=== PATIENT | male | born 1975 | race Caucasian/White ===

== ENCOUNTER 2023-10-25 13:57 | Inpatient (IN) | payer BC, MEDICAID ==
[2023-10-25] VITALS (25 sets, daily range): BP systolic 119–152; BP diastolic 69–104; TEMP 96.3–97.6; O2SAT 92–100
[~2023-10-25] VITALS: Ht 185.4 cm; Wt 96.5 kg
[2023-10-25] MEDS ORDERED: SODIUM CHLORIDE 0.9% INJ 10 ML SYR IV ONE ×2 (14:00)
[2023-10-25] MEDS ORDERED: LABETALOL 100MG/20ML VIAL IV STA ×2 (14:35→16:16)
[2023-10-25] MEDS ORDERED: ISOVUE-370 76% 100ML VIAL As Ordered ONE (14:37)
[2023-10-25 14:49] LABS: BASO % 0.4 % (0.0-1.0); EOS % 0.4 % (0.0-3.0); HEMATOCRIT 39.7 % (42.0-52.0); HEMOGLOBIN 13.1 g/dl (13.5-17.5); LYMPH # 1.8 10^3/uL (1.5-5.0); LYMPH % 17.8 % (24.0-44.0); MEAN CORPUSCULAR VOLUME 93.9 fl (80.0-96.0); MONO % 9.6 % (2.0-8.0); NEUTROPHILS # 7.1 10^3/uL (1.5-8.5); NEUTROPHILS % 71.5 % (36.0-66.0); PLATELET COUNT, AUTOMATED 294 10^3/uL (150-450); RED BLOOD COUNT 4.23 10^6/uL (4.30-6.10)
[2023-10-25 15:01] LABS: INR 1.28; PROTHROMBIN TIME 15.6 SECONDS (12.5-14.5)
[2023-10-25 15:02] LABS: PARTIAL THROMBOPLASTIN TIME 25.5 SECONDS (24.8-34.2)
[2023-10-25 15:12] LABS: CALCIUM LEVEL 8.4 MG/DL (8.5-10.1); CK-MB VALUE MASS 2.3 NG/ML (<3.6); CREATININE FOR GFR 1.38 MG/DL (0.70-1.30); GLOMERULAR FILTRATION RATE 58.1 (>56); POTASSIUM SERUM 4.4 MMOL/L (3.5-5.1)
[2023-10-25 15:15] LABS: MB/CK RELATIVE INDEX 2.37 (< OR =4)
[2023-10-25] MEDS ORDERED: TENECTEPLASE 50 MG KIT (TNKase) IVP ONE (15:30)
[2023-10-25 16:20] LABS: RSV AMPLIFICATION NEGATIVE (NEGATIVE)
[2023-10-25] MEDS ORDERED: MED REC IN PROGRESS XX SCH (16:25)
[2023-10-25] MEDS ORDERED: LABETALOL HCL 200 MG in NS 160 ML IV SCH ×2 (16:45→21:00)
[2023-10-25] MEDS ORDERED: ALBUTEROL 90 MCG/ACT 8GM HFA INHALER INH PRN (17:00)
[2023-10-25] MEDS: LABETALOL HCL 200 MG in NS 160 ML IV SCH ×2 (17:26→19:47)
[2023-10-25 18:00] LABS: C REACTIVE PROTEIN QUANTITATIV 0.6 MG/DL (<1.0)
[2023-10-25 18:01] LABS: RHEUMATOID FACTOR QUANT 8.6 IU/ML (<14)
[2023-10-25 18:14] LABS: ERYTHROCYTE SEDIMENTATION RATE 18 mm/hr (0-20)
[2023-10-25] MEDS ORDERED: ARMO200T3 PO (19:08)
[2023-10-25] MEDS ORDERED: FAMO1TAB11 PO (19:08)
[2023-10-25] MEDS ORDERED: ALBU8.5H PO (19:08)
[2023-10-25] MEDS ORDERED: ATOR40TA75 PO (19:08)
[2023-10-25] MEDS ORDERED: BENZ-18 PO (19:08)
[2023-10-25] MEDS ORDERED: TADA5TAB PO (19:08)
[2023-10-25] MEDS ORDERED: METH4PACK PO (19:08)
[2023-10-25] MEDS ORDERED: AMPH1CAP15 PO (19:08)
[2023-10-25] MEDS ORDERED: LOSA100T5 PO (19:10)
[2023-10-25] MEDS ORDERED: MUCI1TAB18 PO (19:11)
[2023-10-25] MEDS ORDERED: ACET-1349 PO (19:12)
[2023-10-25] MEDS ORDERED: HOME MED LIST COMPLETE! XX SCH (19:35)
[2023-10-25] MEDS: FLUTICASONE HFA 220 MCG 12 GM INHALER (FLOVENT) INH SCH (20:41)
[2023-10-25] MEDS: ATORVASTATIN 20 MG TAB PO SCH (20:48)
[2023-10-25] MEDS ORDERED: SIMVASTATIN 20 MG TAB PO SCH (21:00)
[2023-10-26] VITALS (41 sets, daily range): BP systolic 138–157; BP diastolic 85–104; TEMP 97–98.3; O2SAT 94–99
[2023-10-26] MEDS: FLUTICASONE HFA 220 MCG 12 GM INHALER (FLOVENT) INH SCH ×2 (07:45→20:20)
[2023-10-26] MEDS ORDERED: DOXYCYCLINE HYCLATE 100MG TABLET PO SCH (09:00)
[2023-10-26] MEDS ORDERED: LOSARTAN 50MG TABLET PO SCH (09:00)
[2023-10-26] MEDS: PANTOPRAZOLE 40MG TAB (PROTONIX) PO SCH (09:25)
[2023-10-26] MEDS ORDERED: PILL CUTTER 1 EACH XX PRN (16:05)
[2023-10-26] MEDS: CARVedilol 3.125 MG TAB PO SCH (20:03)
[2023-10-26] MEDS: ASPIRIN 81MG ENTERIC TABLET PO SCH (20:03)
[2023-10-26] MEDS: APIXABAN 5 MG TAB (ELIQUIS) PO SCH (20:03)
[2023-10-26] MEDS: ATORVASTATIN 20 MG TAB PO SCH (20:04)
[2023-10-26] MEDS ORDERED: SPIRONOLACTONE 12.5MG PER 1/2 TABLET PO SCH (21:00)
[2023-10-26] MEDS ORDERED: ENTRESTO 24-26MG TABLET (SACUBITRIL/VALSARTAN) PO SCH (21:00)
[2023-10-27] VITALS: BP 156/90; TEMP 97.2; O2SAT 99
[2023-10-27] MEDS ORDERED: CARVedilol 3.125 MG TAB PO SCH
[2023-10-27] MEDS ORDERED: APIXABAN 5 MG TAB (ELIQUIS) PO SCH
[2023-10-27 04:00] VITALS: BP 164/101; TEMP 97.3; O2SAT 98
[2023-10-27 05:05] LABS: HEMATOCRIT 37.8 % (42.0-52.0); HEMOGLOBIN 12.2 g/dl (13.5-17.5); MEAN CORPUSCULAR HEMOGLOBIN 30.3 pg (27.0-33.0); MEAN CORPUSCULAR HGB CONC 32.3 g/dl (32.0-36.5); MEAN CORPUSCULAR VOLUME 93.8 fl (80.0-96.0); PLATELET COUNT, AUTOMATED 208 10^3/uL (150-450); RED BLOOD COUNT 4.03 10^6/uL (4.30-6.10); WHITE BLOOD COUNT 7.2 10^3/uL (4.0-10.0)
[2023-10-27 05:30] LABS: ALBUMIN 2.8 G/DL (3.2-5.2); BLOOD UREA NITROGEN 30 MG/DL (9-23); CALCIUM LEVEL 8.4 MG/DL (8.5-10.1); CARBON DIOXIDE LEVEL 26 MMOL/L (20-31); CHLORIDE LEVEL 111 MMOL/L (98-107); CREATININE FOR GFR 1.04 MG/DL (0.70-1.30); GLOMERULAR FILTRATION RATE > 60.0 (>56); GLUCOSE, FASTING 102 MG/DL (60-100); POTASSIUM SERUM 3.7 MMOL/L (3.5-5.1); SODIUM LEVEL 144 MMOL/L (136-145)
[2023-10-27] MEDS: FLUTICASONE HFA 220 MCG 12 GM INHALER (FLOVENT) INH SCH (07:34)
[2023-10-27 08:00] VITALS: BP 165/100; TEMP 97.4; O2SAT 9
[2023-10-27] MEDS: PANTOPRAZOLE 40MG TAB (PROTONIX) PO SCH (08:49)
[2023-10-27 08:50] VITALS: BP 165/100
[2023-10-27] MEDS: ASPIRIN 81MG ENTERIC TABLET PO SCH (08:50)
[2023-10-27] MEDS: APIXABAN 5 MG TAB (ELIQUIS) PO SCH (08:50)
[2023-10-27] MEDS: CARVedilol 3.125 MG TAB PO SCH (08:50)
[2023-10-27] MEDS ORDERED: DAPAGLIFLOZIN PROPANEDIOL 10MG TABLET (FARXIGA) PO SCH ×2 (09:00)
[2023-10-27] MEDS ORDERED: CLOPIDOGREL 75 MG TAB PO SCH (09:00)
[2023-10-27] MEDS ORDERED: ENTRESTO 24-26MG TABLET (SACUBITRIL/VALSARTAN) PO SCH (09:00)
[2023-10-27] MEDS ORDERED: ASPI81TAEC PO (10:41)
[2023-10-27] MEDS ORDERED: FLUT12AE3 INH (10:41)
[2023-10-27] MEDS ORDERED: ELIQ5TAB PO (10:41)
[2023-10-27] MEDS ORDERED: FARX1TAB3 PO (10:41)
[2023-10-27] MEDS ORDERED: CARV3.12 PO (10:41)
[2023-10-27] MEDS ORDERED: ENTR1TAB PO (10:41)
[2023-10-29 19:07] LABS: ANTI DOUBLE STRAND-DNA AB 10 IU/mL (0-9); ANTINUCLEAR ANTIBODIES DIRECT Positive (Negative); CARDIOLIPIN IGA ANTIBODY <9 APL U/mL (0-11); CARDIOLIPIN IGG ANTIBODY <9 GPL U/mL (0-14); CARDIOLIPIN IGM ANTIBODY <9 MPL U/mL (0-12); RNP ANTIBODIES 0.3 AI (0.0-0.9); SJOGREN'S ANTI SS-A <0.2 AI (0.0-0.9); SJOGREN'S ANTI SS-B <0.2 AI (0.0-0.9); SMITH ANTIBODIES <0.2 AI (0.0-0.9)
== END 2023-10-27 13:49 | disposition home or self-care (01) | DRG 45 ==
LOC: EDBD 13:57 → M ED 13:57 → M ED INP 16:43 → M ICU 18:14
PROVIDERS: ADMIT Internal Medicine Pulmonary Disease; ATTEND Internal Medicine Pulmonary Disease
DX: I63.40 Cerebral infarction due to embolism of unspecified cerebral artery (principal); I42.0 Dilated cardiomyopathy; I71.20 Thoracic aortic aneurysm, without rupture, unspecified; G47.33 Obstructive sleep apnea (adult) (pediatric); J45.909 Unspecified asthma, uncomplicated; K21.9 Gastro-esophageal reflux disease without esophagitis; Z88.2 Allergy status to sulfonamides; Z88.8 Allergy status to other drugs, medicaments and biological substances; Z79.899 Other long term (current) drug therapy; I25.10 Atherosclerotic heart disease of native coronary artery without angina pectoris; I25.2 Old myocardial infarction; I10 Essential (primary) hypertension; E78.5 Hyperlipidemia, unspecified